=== PATIENT | female | born 1975 | race African-American/Black ===

== ENCOUNTER 2016-10-20 21:00 | Emergency (ER) | payer OTHER ==
[~2016-10-20] VITALS: Ht 170.2 cm; Wt 74.8 kg
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
[~2016-10-20 21:00] MED LIST: BACTRIM DS TABL1 TA1 PO
== END 2016-10-20 23:50 | disposition home or self-care (01) ==
LOC: CED 21:00
DX: S19.9XXA Unspecified injury of neck, initial encounter (principal); I10 Essential (primary) hypertension; V49.50XA Passenger injured in collision with unspecified motor vehicles in traffic accident, initial encounter
CPT/HCPCS: 72040; 99283